=== PATIENT | female | born 1995 | race Caucasian/White ===

== ENCOUNTER 2016-07-10 21:30 | Emergency (ER) | payer OTHER ==
[2016-07-10 21:36] VITALS: RESP 16
[2016-07-10] MEDS ORDERED: predniSONE 20 MG TAB ONE (21:57)
--- NOTE | 2016-07-10 21:58 | EDPHY ---
H & P Stated Complaint: allergic rxn - thinks related to sulfa abx for sinus infx Time Seen by Provider: 07/10/16 21:45 HPI/ROS: CHIEF COMPLAINT: Diffuse erythematous rash after taking Bactrim HISTORY OF PRESENT ILLNESS: The patient presents to the ED complaining of diffuse erythematous rash after taking Bactrim for a sinus infection. She completed the antibiotic 2 days ago and developed a rash today. She has no difficulty breathing, wheezing or complaints of any mucosal irritation. The patient denies prior history of drug reaction. She had been on a low dose of prednisone while taking Bactrim which she also. Several days ago. The patient denies additional medications. She denies any fever. She denies acute headache , numbness, weakness or additional complaints. REVIEW OF SYSTEMS: A comprehensive 10 point review of systems is otherwise negative aside from elements mentioned in the history of present illness. Source: Patient Exam Limitations: No limitations - Medical/Surgical History Hx Asthma: No Hx Chronic Respiratory Disease: No Hx Diabetes: No Hx Cardiac Disease: No Hx Renal Disease: No Hx Cirrhosis: No Hx Alcoholism: No Hx HIV/AIDS: No Hx Splenectomy or Spleen Trauma: No Other PMH: anxiety - Social History Smoking Status: Never smoked - Physical Exam Exam: General Appearance: Alert, no distress Eyes: Pupils equal and round no pallor or injection ENT, Mouth: Mucous membranes moist Respiratory: There are no retractions, lungs are clear to auscultation Cardiovascular: Regular rate and rhythm Gastrointestinal: Abdomen is soft and nontender, no masses, bowel sounds normal Neurological: A&O, normal motor function, normal sensory exam, normal cranial nerves Skin: Diffuse erythematous rash consistent with drug reaction Musculoskeletal: Neck is supple nontender Extremities: symmetrical, full range of motion Constitutional: Initial Vital Signs Temperature (C) 36.8 C 07/10/16 21:33 Heart Rate 74 07/10/16 21:33 Respiratory Rate 16 07/10/16 21:33 Blood Pressure 127/78 H 07/10/16 21:33 O2 Sat (%) 99 07/10/16 21:33 O2 Delivery Mode Room Air Allergies/Adverse Reactions: No Known Allergies Allergy (Unverified 07/10/16 21:36) Home Medications: Medication Instructions Recorded Control 07/10/16 Prozac 10 MG (*) 07/10/16 predniSONE [prednisone 20mg (RX)] 2 tab PO DAILY #5 tab 07/10/16 Medical Decision Making ED Course/Re-evaluation: The patient presents to the ED with a delayed rash following a course of oral Bactrim. The patient has no evidence of a Millard-Phil type syndrome or TEN. She is well-appearing without respiratory distress. The patient will be given a prescription for oral prednisone to take for the next 5 days. She is advised to return to the ED for any markedly worsening symptoms or other concerns. No additional antibiotics will be prescribed given her lack of fever and ongoing sinus symptoms. Patient has been advised to avoid Bactrim and sulfa containing antibiotics in the future. Differential Diagnosis: Differential diagnosis considered includes drug reaction, anaphylaxis, hives, angioedema Departure - Departure Disposition: Home, Routine, Self-Care Clinical Impression: Drug reaction Condition: Good Instructions: Acute Rash (ED) Additional Instructions: 1. Please take prednisone as directed for the next 5 days. 2. Please avoid all sulfa containing antibiotics and medications such as Bactrim in the future. 3. Please return to the ED for any difficulty breathing, rash inside your mouth or genital area, worsening symptoms or other concerns. Referrals: Susan Saldaña MD [Primary Care Provider] - As per Instructions Prescriptions: predniSONE [prednisone 20mg (RX)] 2 tab PO DAILY #5 tab
[2016-07-10 22:28] VITALS: BP 114/69; PULSE 78; TEMP 98.6; O2SAT 100
[2016-07-11] MEDS ORDERED: predniSONE 20 MG TAB PO ONE (21:54)
== END 2016-07-10 22:28 | disposition home or self-care (01) ==
DX: T37.0X4A Poisoning by sulfonamides, undetermined, initial encounter (principal)

== ENCOUNTER 2016-07-11 09:22 | Emergency (ER) | payer OTHER ==
[2016-07-11] MEDS ORDERED: predniSONE 20 MG TAB PO ONE (09:53)
[2016-07-11] MEDS ORDERED: FAMOTIDINE 20 MG TAB PO ONE (09:53)
[2016-07-11] MEDS ORDERED: diphenhydrAMINE 25 MG CAP PO ONE (09:53)
--- NOTE | 2016-07-11 09:55 | EDPHY ---
H & P Stated Complaint: Here yesterday for rash;has not started steroid rx;still has rash Time Seen by Provider: 07/11/16 09:43 HPI/ROS: CHIEF COMPLAINT: Continued rash, new bilateral hand and wrist numbness HISTORY OF PRESENT ILLNESS: 20-year-old female seen emergency department last evening, discharged approximately 2230 hours last night after being given oral steroid for rash after taking Bactrim for sinus infection. She has been off the Bactrim for 3 days. She is given a prescription for steroid last evening however because she was discharged approximately 2230 hours she has not had a prescription filled yet. She did take last dose of Benadryl last evening. She woke this morning noting new paresthesia to her bilateral hand and feet. No worsening of rash. Rash continues to be pruritic, nontender. No blistering. No palmar surfaces affected. No intraoral lesions. No genitalia lesions. No ocular irritation or injection. No GI complaints such as nausea vomiting or diarrhea. PRIMARY CARE PROVIDER: Dr. Susan Saldaña REVIEW OF SYSTEMS: A ten point review of systems was performed and is negative with the exception of the items mentioned in the HPI PAST MEDICAL & SURGICAL HISTORY: No pertinent medical or surgical history SOCIAL HISTORY: student nonsmoker PHYSICAL EXAM (Prior to examination, patient consented to physical exam, hands were washed and my usual and customary physical exam procedures followed) 1) GENERAL: Well-developed, well-nourished, alert and oriented. Appears to be in no acute distress. 2) HEAD: Normocephalic, atraumatic 3) HEENT: Pupils equal, round, reactive to light bilaterally. no ocular injection. Periorbital edema noted. Nasopharynx, oropharynx, clear, no lesions. Moist. No intraoral or intranasal lesions. Ears bilaterally with normal tympanic membranes. 4) NECK: Full range of motion, no meningeal signs. 5) LUNGS: Clear auscultation bilaterally, no wheezes, no rhonchi, no retractions. 6) HEART: Regular rate and rhythm, no murmur, no heave, no gallop. 7) ABDOMEN: No guarding, no rebound, no focal tenderness, negative McBurney's, negative Lambert's, negative Rovsing's, negative peritoneal sign, 8) MUSCULOSKELETAL: Moving all extremities, no focal areas of tenderness, no obvious trauma. No peripheral edema or discoloration. Upper and lower extremities have strongly equal pulses with brisk capillary refill. 9) BACK: No CVA tenderness, no midline vertebral tenderness, no fluctuance, no step-off, no obvious trauma, no visual or palpable abnormality. 10) SKIN: No blistering. There is diffuse flat erythematous rash which is nontender, it is blanchable, no blistering, no sloughing, no tenderness. Multiple areas of excoriation noted without signs of cellulitis. The rash spares the palmar surfaces. 11) exam: Not performed this patient notes no lesions 12) NEURO: Awake, alert, and oriented to person, place and time. Answers questions appropriately. There were no obvious focal neurologic abnormalities. No cerebellar dysfunction. Normal steady gait. Upper and lower extremities bilaterally with strength 5 / 5, reflexes 2+. DIFFERENTIAL DIAGNOSIS: in no particular include but limited to Urticaria, anaphylaxis, acute drug reaction, Millard-Phil, TEN - Personal History LMP (Females 10-55): Unknown Current Tetanus Diphtheria and Acellular Pertussis (TDAP): Yes - Medical/Surgical History Hx Asthma: No Hx Chronic Respiratory Disease: No Hx Diabetes: No Hx Cardiac Disease: No Hx Renal Disease: No Hx Cirrhosis: No Hx Alcoholism: No Hx HIV/AIDS: No Hx Splenectomy or Spleen Trauma: No Other PMH: anxiety - Social History Smoking Status: Never smoked Constitutional: Initial Vital Signs Heart Rate 90 07/11/16 09:26 Respiratory Rate 18 07/11/16 09:26 Blood Pressure 109/72 07/11/16 09:26 O2 Sat (%) 98 07/11/16 09:26 O2 Delivery Mode Room Air Allergies/Adverse Reactions: Sulfa (Sulfonamide Antibiotics) Allergy (Mild, Verified 07/11/16 09:26) Rash Home Medications: Medication Instructions Recorded Control 07/10/16 Prozac 10 MG (*) 07/10/16 predniSONE [prednisone 20mg (RX)] 2 tab PO DAILY #5 tab 07/10/16 Medical Decision Making ED Course/Re-evaluation: Doubt anaphylaxis, doubt Millard-Phil or toxic epidermal necrolysis. The rash has not progressed. Remains pruritic. She complains of paresthesia to her hands and feet bilaterally. She is neurologically intact, neurovascularly intact. Doubt vascular etiology. Discussed possibility of 3rd spacing causing neurologic pressure causing paresthesia. She has been given dose of prednisone , Benadryl, Zantac, observed in the ER for period of time and remained stable. At 11:01 a.m. she was re-evaluated notes that the peripheral paresthesias have resolved. Lungs remain clear, airway is patent. I think she can be discharged. Case discussed WithDr. Jennifer Harris. Recommend continuing prednisone Benadryl Pepcid - Data Points Medications Given: Discontinued Medications Diphenhydramine HCl (Benadryl) 25 mg PO EDNOW ONE Stop: 07/11/16 09:54 Last Admin: 07/11/16 10:18 Dose: 25 mg Famotidine (Pepcid) 20 mg PO EDNOW ONE Stop: 07/11/16 09:54 Last Admin: 07/11/16 10:18 Dose: 20 mg Prednisone (Prednisone) 60 mg PO EDNOW ONE Stop: 07/11/16 09:54 Last Admin: 07/11/16 10:18 Dose: 60 mg Departure - Departure Disposition: Home, Routine, Self-Care Clinical Impression: Medication reaction Condition: Good Instructions: Allergies (ED) Additional Instructions: Take Benadryl 25 mg (1 tab) every 6 hours for the next 2 days Take Pepcid, 1 tablet every 12 hours for the next 2 days take your prednisone as directed starting tomorrow as your given today's dose in the ER. Call 911 if you developed chest pain, shortness of breath, blistering, lesions in your mouth or any other symptoms that concern you. Referrals: Susan Saldaña MD [Primary Care Provider] - As per Instructions
[2016-07-11] MEDS ORDERED: KETOROLAC 30 MG/1 ML SDV ONE (11:06)
[2016-07-11 11:15] VITALS: BP 128/78; PULSE 70; RESP 16; TEMP 98.4; O2SAT 94
== END 2016-07-11 11:14 | disposition home or self-care (01) ==
DX: R20.2 Paresthesia of skin (principal); T45.0X5A Adverse effect of antiallergic and antiemetic drugs, initial encounter
CPT/HCPCS: J1885

== ENCOUNTER 2016-08-31 10:48 | Emergency (ER) | payer OTHER ==
[2016-08-31 10:58] VITALS: BP 100/69; PULSE 89; RESP 16; TEMP 98.1; O2SAT 98
[2016-08-31] MEDS ORDERED: DEXAMETHASONE 4 MG TAB PO ONE (11:13)
--- NOTE | 2016-08-31 11:23 | EDPHY ---
H & P Stated Complaint: "I think I have a sinus infection",vom/diarrhea yesterday, none today Time Seen by Provider: 08/31/16 11:09 HPI/ROS: CHIEF COMPLAINT: Sinus infection HISTORY OF PRESENT ILLNESS: Patient complains of sinus pressure, congestion, runny nose and headache. Symptoms are consistent with previous sinus infections. The started yesterday. This was after 2 episodes of vomiting yesterday morning. She has had no further vomiting. She has no abdominal pain. No chest or back pain. No cough. Some body aches and subjective fever yesterday. No neck pain or stiffness. The headache is located in the frontal sinus and maxillary sinuses. She is seen in nose and throat physician in June for this. She had been diagnosed with sinus infection in early July and took Bactrim with an allergic reaction to this. She finished out prednisone. No other associated complaints or modifying factors. REVIEW OF SYSTEMS: Ten systems reviewed and are negative unless otherwise noted in the HPI PERTINENT MEDICAL HISTORY: Recurrent sinusitis EXAMINATION General Appearance: Alert, no distress Head: normocephalic, atraumatic Eyes: Pupils equal and round, no conjunctival pallor or injection ENT, Mouth: Mucous membranes moist. Uvula midline. No erythema or edema. Airway is widely patent. There is tenderness to the frontal sinuses and maxillary sinuses bilaterally. No purulence in the nares. Ears are clear. Neck: Normal inspection, supple, non-tender Respiratory: Lungs are clear to auscultation. No wheezing, rhonchi or crackles. Cardiovascular: Regular rate and rhythm. No murmur. Pulses intact distally. Skin: Warm and dry, no rash. No petechiae or purpura. Extremities: Nontender, no pedal edema Psychiatric: Mood and affect normal DIFFERENTIAL DIAGNOSES: Including but not limited to recurrent sinusitis, acute sinusitis, upper respiratory infection, influenza MDM: 11:15 a.m. Acute sinusitis. No associated complications. She has normal vital signs. No abnormality on auscultation. No abnormality of the posterior pharynx. Discharged home with a Decadron dosing here. I will prescribe Augmentin for her. She is to follow up with her nose and throat and/or primary care physician for further care. She is comfortable with this plan and discharged home in stable condition. SUPERVISION: This patient was independently evaluated without direct examination by the attending physician. Case was discussed with attending physician. Source: Patient, Old records Exam Limitations: No limitations - Personal History LMP (Females 10-55): Extended Cycle BCP/Inj Current Tetanus Diphtheria and Acellular Pertussis (TDAP): Yes - Medical/Surgical History Hx Asthma: No Hx Chronic Respiratory Disease: No Hx Diabetes: No Hx Cardiac Disease: No Hx Renal Disease: No Hx Cirrhosis: No Hx Alcoholism: No Hx HIV/AIDS: No Hx Splenectomy or Spleen Trauma: No Other PMH: anxiety - Social History Smoking Status: Never smoked Constitutional: Initial Vital Signs Temperature (C) 98.1 F 08/31/16 10:50 Heart Rate 89 08/31/16 10:50 Respiratory Rate 16 08/31/16 10:50 Blood Pressure 100/69 08/31/16 10:50 O2 Sat (%) 98 08/31/16 10:50 O2 Delivery Mode Room Air Allergies/Adverse Reactions: Sulfa (Sulfonamide Antibiotics) Allergy (Intermediate, Verified 08/31/16 10:54) Hives Home Medications: Medication Instructions Recorded Control 07/10/16 Prozac 10 MG (*) 07/10/16 Amoxicillin/Clavulanate Pot 875 mg PO BID #20 tab 08/31/16 [Augmentin 875 MG TAB (*)] Departure - Departure Disposition: Home, Routine, Self-Care Clinical Impression: Acute sinus infection Qualifiers: Sinusitis location: unspecified location Recurrence: recurrent Qualified Code(s ): J01.91 - Acute recurrent sinusitis, unspecified Condition: Good Instructions: Sinusitis (ED) Additional Instructions: Ibuprofen 600-800 mg every 8 hours. Increase fluid intake. Pseudoephedrine [id number] as prescribed as needed. Referrals: Susan Saldaña MD [Primary Care Provider] - As per Instructions Chioma Spicer MD [Medical Doctor] - As per Instructions Prescriptions: Amoxicillin/Clavulanate Pot [Augmentin 875 MG TAB (*)] 875 mg PO BID #20 tab
== END 2016-08-31 11:44 | disposition home or self-care (01) ==
DX: J01.91 Acute recurrent sinusitis, unspecified (principal)